=== PATIENT | male | born 1985 ===

== ENCOUNTER 2017-11-24 17:16 | Emergency (ER) | payer OTHER ==
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
[2017-11-24 17:29] VITALS: BMI 41.9
[2017-11-24] MEDS ORDERED: Oxycodone/Acetaminophen 5/325 mg Tab PO STA (17:36)
[2017-11-24 18:18] VITALS: BP 128/79; PULSE 85; RESP 18; TEMP 98.2; O2SAT 98
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
== END 2017-11-24 19:47 | disposition home or self-care (01) ==
LOC: ED 17:16
DX: S80.02XA Contusion of left knee, initial encounter (principal); S86.912A Strain of unspecified muscle(s) and tendon(s) at lower leg level, left leg, initial encounter; V03.10XA Pedestrian on foot injured in collision with car, pick-up truck or van in traffic accident, initial encounter